=== PATIENT | male | born 1965 | race Caucasian/White ===

== ENCOUNTER 2020-11-11 12:09 | Inpatient (IN) | payer BC ==
[~2020-11-11] VITALS: Ht 188 cm; Wt 125.0 kg
[~2020-11-11 12:09] MED LIST: METO-384 PO; SIMV-42 PO; TRAM50TA2 PO; ZOLP10TA5 PO
[2020-11-11] MEDS ORDERED: dexamethasone sod phosphate 10mg/ml inj IV STA (14:13)
[2020-11-11 14:28] LABS: CLARITY,URINE SLIGHTLY CLOUDY (Clear); COLOR,URINE YELLOW (Yellow); GLUCOSE, URINE NEGATIVE (Neg); KETONES,URINE NEGATIVE (Neg); LEUKOCYTE ESTERASE ,URINE NEGATIVE (Neg); NITRITES, URINE NEGATIVE (Neg); OCCULT BLOOD,URINE TRACE-INTACT (Neg); PROTEIN,URINE 100 mg/dl (Neg); UROBILINOGEN,URINE >=8.0 E.U/dL (0.2-1.0)
[2020-11-11 14:35] LABS: UA COLLECTION TYPE NON-SPECIFIED
[2020-11-11 14:42] LABS: MUCUS STRANDS FEW /LPF (Neg); SQUAMOUS EPITHELIAL CELL,UR NONE SEEN /LPF (FEW)
[2020-11-11 14:43] LABS: BACTERIA,URINE FEW /HPF (Neg); RBC,URINE 0-2 /HPF (0-2); WBC,URINE 0-4 /HPF (0-4)
[2020-11-11 15:53] LABS: BASOPHILS % (AUTO) 0.1 % (0-1); EOSINOPHILS % (AUTO) 0 % (0-6); HEMATOCRIT 44.8 % (42.0-52.0); HEMOGLOBIN 15.3 g/dl (14.0-17.9); LYMPHOCYTES % (AUTO) 14.9 % (21-51); MEAN CORPUSCULAR HEMOGLOBIN 30.2 PG (27.0-31.0); MEAN CORPUSCULAR HGB CONC 34.2 g/dL (33.0-36.5); MEAN CORPUSCULAR VOLUME 88.5 FL (78-98); MONOCYTES # (AUTO) 0.5 X10'3 (0-0.9); MONOCYTES % (AUTO) 7.5 % (2-12); NEUTROPHILS # (AUTO) 5.3 X10'3 (1.8-7.7); NEUTROPHILS % (AUTO) 77.5 % (42-75); PLATELET COUNT 236 X10'3 (140-440); RED BLOOD COUNT 5.06 X10'6 (4.70-6.10); WHITE BLOOD COUNT 6.9 X10'3 (4.5-11.0)
[2020-11-11 16:14] LABS: ALANINE AMINOTRANSFERASE 87 U/L (12-78); ALBUMIN/GLOBULIN RATIO 0.8 (1.1-1.5); ALKALINE PHOSPHATASE 97 IU/L (46-116); ANION GAP 9 (8-16); ASPARTATE AMINO TRANSFERASE 93 U/L (10-37); BILIRUBIN,TOTAL 0.7 MG/DL (0.1-1.0); BLOOD UREA NITROGEN 18 MG/DL (7-18); BUN/CREATININE RATIO 17.8 (5.4-32.0); C-REACTIVE PROTEIN 4.37 MG/DL (0.0-0.5); CALCIUM 8.3 MG/DL (8.5-10.1); CHLORIDE 98 MMOL/L (99-107); CREATININE 1.01 MG/DL (0.60-1.10); GLUCOSE 105 MG/DL (70-104); LACTATE DEHYDROGENASE 795 U/L (85-227); LIPASE 248 U/L (73-393); POTASSIUM 4.2 MMOL/L (3.5-5.1); SODIUM 135 MMOL/L (135-145); TOTAL CARBON DIOXIDE 27.9 MMOL/L (24-32); TOTAL PROTEIN 6.9 G/DL (6.4-8.2); eGFR 76 ML/MIN
[2020-11-11] MEDS ORDERED: REMDESIVIR INJ 200 MG in normal saline 100ml IV soln 60 ML IV ONE (16:30)
[2020-11-11] MEDS ORDERED: acetaminophen 325mg tablet PO PRN ×2 (17:10)
[2020-11-11] MEDS ORDERED: potassium Cl 40MEQ/1/2NS 520ml 520 ML IV PRN ×2 (17:10)
[2020-11-11] MEDS ORDERED: magnesium 4gm in 100ml NS 100 ML IV PRN (17:10)
[2020-11-11] MEDS ORDERED: magnesium 2GM in 50ml NS 50 ML IV PRN (17:10)
[2020-11-11] MEDS ORDERED: magnesium Cl slow-release 64mg tablet PO PRN (17:10)
[2020-11-11] MEDS ORDERED: ondansetron/PF 4mg/2ml inj IV PRN (17:10)
[2020-11-11] MEDS ORDERED: potassium Cl 20 mEq SR tablet PO PRN ×2 (17:10)
[2020-11-11] MEDS ORDERED: iohexol 350MG/ML 100ml bottle IV ONE (17:55)
--- NOTE | 2020-11-11 18:05 | NUR ---
To radiology via wheelchair. Transported by technology solutions architect.
[2020-11-11] MEDS ORDERED: dexamethasone 4mg/ml inj IV SCH (20:00)
[2020-11-11] MEDS: K and/or MAG REPLACEMENT MC SCH (20:00)
[2020-11-11] MEDS: dexamethasone 6 MG in NS 50ml IV soln IV SCH (20:00)
[2020-11-11] MEDS: heparin, porcine 5000 units/ml vial SQ SCH (21:21)
[2020-11-12 03:16] LABS: BASOPHILS % (AUTO) 0.1 % (0-1); EOSINOPHILS % (AUTO) 0 % (0-6); HEMATOCRIT 43.3 % (42.0-52.0); HEMOGLOBIN 14.7 g/dl (14.0-17.9); LYMPHOCYTES # (AUTO) 0.7 X10'3 (1.1-4.8); LYMPHOCYTES % (AUTO) 15.5 % (21-51); MEAN CORPUSCULAR HEMOGLOBIN 30.4 PG (27.0-31.0); MEAN CORPUSCULAR VOLUME 89.2 FL (78-98); MEAN PLATELET VOLUME 8.8 FL (7.4-10.4); MONOCYTES # (AUTO) 0.2 X10'3 (0-0.9); MONOCYTES % (AUTO) 5.7 % (2-12); NEUTROPHILS # (AUTO) 3.5 X10'3 (1.8-7.7); NEUTROPHILS % (AUTO) 78.7 % (42-75); PLATELET COUNT 264 X10'3 (140-440); RED BLOOD COUNT 4.86 X10'6 (4.70-6.10); RED CELL DISTRIBUTION WIDTH 13.9 % (11.5-14.5); WHITE BLOOD COUNT 4.4 X10'3 (4.5-11.0)
[2020-11-12 03:26] LABS: ALANINE AMINOTRANSFERASE 93 U/L (12-78); ALBUMIN 2.8 G/DL (3.4-5.0); ALBUMIN/GLOBULIN RATIO 0.7 (1.1-1.5); ALKALINE PHOSPHATASE 95 IU/L (46-116); ANION GAP 7 (8-16); ASPARTATE AMINO TRANSFERASE 77 U/L (10-37); BILIRUBIN,TOTAL 0.6 MG/DL (0.1-1.0); BLOOD UREA NITROGEN 18 MG/DL (7-18); BUN/CREATININE RATIO 16.8 (5.4-32.0); CALCIUM 8.2 MG/DL (8.5-10.1); CHLORIDE 100 MMOL/L (99-107); CHOL/HDL RATIO 2.7 (0.00-4.99); CHOLESTEROL 135 MG/DL (0-200); CREATININE 1.07 MG/DL (0.60-1.10); GLUCOSE 176 MG/DL (70-104); HDL CHOLESTEROL 50 MG/DL (35-60); LDL CHOLESTEROL 60 MG/DL (50-100); MAGNESIUM 2.4 MG/DL (1.5-2.4); POTASSIUM 4.9 MMOL/L (3.5-5.1); SODIUM 137 MMOL/L (135-145); TOTAL CARBON DIOXIDE 29.7 MMOL/L (24-32); TOTAL PROTEIN 6.6 G/DL (6.4-8.2); TRIGLYCERIDES 85 MG/DL (20-135); eGFR 71 ML/MIN
[2020-11-12] MEDS: K and/or MAG REPLACEMENT MC SCH ×2 (08:00→20:00)
[2020-11-12] MEDS: heparin, porcine 5000 units/ml vial SQ SCH ×2 (09:55→20:56)
[2020-11-12] MEDS: REMDESIVIR INJ 100 MG in normal saline 100ml IV soln 80 ML IV SCH (09:56)
[2020-11-12] MEDS: dexamethasone 6 MG in NS 50ml IV soln IV SCH (09:56)
[2020-11-12] MEDS ORDERED: LAMO150T6 PO (11:16)
[2020-11-12] MEDS ORDERED: OMEP40CA21 PO (11:16)
--- NOTE | 2020-11-12 12:50 | NUR ---
PAGER ID: [phone] MESSAGE: [phone] RE: BED 4 NATHALIA O2 89% AT 6L CAN WE GET HIGH FLOW NC OR SHOULD I DO NON-REBREATHER?
[2020-11-12 15:00] VITALS: BP 138/68
--- NOTE | 2020-11-12 15:05 | NUR ---
TRIED TO CALL REPORT, RN UNAVAILABLE WILL CALL BACK
--- NOTE | 2020-11-12 16:00 | NUR ---
nettie Clarke in room COVID 02. I have received report from Nettie RN and had the opportunity to ask questions and assume patient care.patient is on high flow salter 10L o2 sats 89-90%. settled into room.
[2020-11-12 18:00] VITALS: BP 140/73
[2020-11-12] MEDS ORDERED: ALBUTEROL INHALER 1 PUFF/90 MCG INHALER IH PRN (19:30)
[2020-11-12] MEDS: DEXAMETHASONE 6 MG TABLET PO SCH (20:54)
[2020-11-12 23:32] VITALS: BP 142/76
--- NOTE | 2020-11-12 23:59 | NUR ---
Problems reprioritized. Patient report given, questions answered & plan of care reviewed with jaimee DICKSON.
[2020-11-13] VITALS (7 sets, daily range): BP systolic 114–176; BP diastolic 60–81
--- NOTE | 2020-11-13 00:15 | NUR ---
Patient in room COVID 02. I have received report from MICHI and had the opportunity to ask questions and assume patient care.
[2020-11-13] MEDS: heparin, porcine 5000 units/ml vial SQ SCH ×2 (07:53→21:16)
[2020-11-13] MEDS: DEXAMETHASONE 6 MG TABLET PO SCH ×2 (07:53→21:15)
[2020-11-13] MEDS: REMDESIVIR INJ 100 MG in normal saline 100ml IV soln 80 ML IV SCH (07:53)
[2020-11-13] MEDS: K and/or MAG REPLACEMENT MC SCH ×2 (08:00→20:00)
[2020-11-13 09:40] LABS: D-DIMER 0.69 MG/L FEU (0-0.50)
[2020-11-13 09:50] LABS: BASOPHILS % (AUTO) 0.1 % (0-1); EOSINOPHILS % (AUTO) 0 % (0-6); HEMATOCRIT 43.7 % (42.0-52.0); LYMPHOCYTES # (AUTO) 0.8 X10'3 (1.1-4.8); LYMPHOCYTES % (AUTO) 10.9 % (21-51); MEAN CORPUSCULAR HEMOGLOBIN 30.3 PG (27.0-31.0); MEAN CORPUSCULAR HGB CONC 34.3 g/dL (33.0-36.5); MEAN CORPUSCULAR VOLUME 88.4 FL (78-98); MEAN PLATELET VOLUME 8.7 FL (7.4-10.4); MONOCYTES # (AUTO) 0.4 X10'3 (0-0.9); MONOCYTES % (AUTO) 5.3 % (2-12); NEUTROPHILS # (AUTO) 5.8 X10'3 (1.8-7.7); NEUTROPHILS % (AUTO) 83.7 % (42-75); PLATELET COUNT 374 X10'3 (140-440); RED BLOOD COUNT 4.94 X10'6 (4.70-6.10); RED CELL DISTRIBUTION WIDTH 13.6 % (11.5-14.5); WHITE BLOOD COUNT 6.9 X10'3 (4.5-11.0)
[2020-11-13 10:12] LABS: ALANINE AMINOTRANSFERASE 135 U/L (12-78); ALBUMIN 2.7 G/DL (3.4-5.0); ALBUMIN/GLOBULIN RATIO 0.7 (1.1-1.5); ALKALINE PHOSPHATASE 97 IU/L (46-116); ANION GAP 10 (8-16); ASPARTATE AMINO TRANSFERASE 60 U/L (10-37); BILIRUBIN,TOTAL 0.6 MG/DL (0.1-1.0); BLOOD UREA NITROGEN 21 MG/DL (7-18); BUN/CREATININE RATIO 19.6 (5.4-32.0); C-REACTIVE PROTEIN 1.54 MG/DL (0.0-0.5); CALCIUM 8.2 MG/DL (8.5-10.1); CHLORIDE 101 MMOL/L (99-107); CREATININE 1.07 MG/DL (0.60-1.10); GLUCOSE 201 MG/DL (70-104); MAGNESIUM 2.3 MG/DL (1.5-2.4); POTASSIUM 4.4 MMOL/L (3.5-5.1); SODIUM 139 MMOL/L (135-145); TOTAL CARBON DIOXIDE 28.2 MMOL/L (24-32); TOTAL PROTEIN 6.5 G/DL (6.4-8.2); eGFR 71 ML/MIN
[2020-11-13 10:55] LABS: LACTATE DEHYDROGENASE 573 U/L (85-227)
--- NOTE | 2020-11-13 13:16 | NUR ---
Patient ambulated to PCT on 15L high flow O2, Patients O2 sats did drop to 83% with ambulation and mild shortness of breath. Patient back in bed and on Salter High flow 12L Patient took a few minutes to Recover and now his O2 sats are at 94% on 12L salter. Will continue to monitor, notified PT no need for PT services.
--- NOTE | 2020-11-13 15:42 | NUR ---
Problems reprioritized. Patient report given, questions answered & plan of care reviewed with Rachna DICKSON.
--- NOTE | 2020-11-13 15:52 | NUR ---
RECEIVED REPORT FROM YESSI MYLES. PT GOING TO 3430M
--- NOTE | 2020-11-13 16:51 | NUR ---
PT ARRIVED TO THE FLOOR AT 1640
--- NOTE | 2020-11-13 18:56 | NUR ---
Problems reprioritized. Patient report given, questions answered & plan of care reviewed with YESSI HUDSON.
--- NOTE | 2020-11-13 20:30 | NUR ---
Pt b/p is 176/80. Paged Dr Saldaña to get home bp and chol meds started. Put orders in for tonight.
[2020-11-13] MEDS: metoprolol succinate 25mg (24-HOUR) SR. Tablet PO SCH (21:15)
[2020-11-13] MEDS: atorvastatin 20mg tablet PO SCH (21:16)
[2020-11-14 02:00] VITALS: BP 134/75
[2020-11-14 06:00] VITALS: BP 132/74
--- NOTE | 2020-11-14 06:52 | NUR ---
Patient in room ORTHO 4024. I have received report from YESSI Zimmerman and had the opportunity to ask questions and assume patient care.
[2020-11-14 07:59] LABS: BASOPHILS % (AUTO) 0.1 % (0-1); EOSINOPHILS % (AUTO) 0 % (0-6); HEMATOCRIT 43.3 % (42.0-52.0); HEMOGLOBIN 14.8 g/dl (14.0-17.9); LYMPHOCYTES # (AUTO) 0.7 X10'3 (1.1-4.8); LYMPHOCYTES % (AUTO) 7.7 % (21-51); MEAN CORPUSCULAR HEMOGLOBIN 30.3 PG (27.0-31.0); MEAN CORPUSCULAR HGB CONC 34.2 g/dL (33.0-36.5); MEAN CORPUSCULAR VOLUME 88.6 FL (78-98); MEAN PLATELET VOLUME 8.4 FL (7.4-10.4); MONOCYTES # (AUTO) 0.9 X10'3 (0-0.9); MONOCYTES % (AUTO) 9.1 % (2-12); NEUTROPHILS # (AUTO) 7.8 X10'3 (1.8-7.7); NEUTROPHILS % (AUTO) 83.1 % (42-75); PLATELET COUNT 437 X10'3 (140-440); RED BLOOD COUNT 4.89 X10'6 (4.70-6.10); RED CELL DISTRIBUTION WIDTH 13.7 % (11.5-14.5); WHITE BLOOD COUNT 9.3 X10'3 (4.5-11.0)
[2020-11-14] MEDS: K and/or MAG REPLACEMENT MC SCH ×2 (08:00→15:24)
[2020-11-14 08:08] LABS: ALANINE AMINOTRANSFERASE 101 U/L (12-78); ALBUMIN 2.6 G/DL (3.4-5.0); ALBUMIN/GLOBULIN RATIO 0.8 (1.1-1.5); ALKALINE PHOSPHATASE 91 IU/L (46-116); ANION GAP 7 (8-16); ASPARTATE AMINO TRANSFERASE 32 U/L (10-37); BILIRUBIN,TOTAL 0.7 MG/DL (0.1-1.0); BLOOD UREA NITROGEN 22 MG/DL (7-18); BUN/CREATININE RATIO 23.4 (5.4-32.0); C-REACTIVE PROTEIN 0.62 MG/DL (0.0-0.5); CALCIUM 8.1 MG/DL (8.5-10.1); CHLORIDE 104 MMOL/L (99-107); CREATININE 0.94 MG/DL (0.60-1.10); GLUCOSE 153 MG/DL (70-104); LACTATE DEHYDROGENASE 482 U/L (85-227); MAGNESIUM 2.3 MG/DL (1.5-2.4); POTASSIUM 5.3 MMOL/L (3.5-5.1); SODIUM 139 MMOL/L (135-145); TOTAL CARBON DIOXIDE 27.9 MMOL/L (24-32); eGFR 83 ML/MIN
[2020-11-14 08:33] LABS: D-DIMER 0.48 MG/L FEU (0-0.50)
[2020-11-14] MEDS: REMDESIVIR INJ 100 MG in normal saline 100ml IV soln 80 ML IV SCH (09:52)
[2020-11-14] MEDS: atorvastatin 20mg tablet PO SCH (09:58)
[2020-11-14] MEDS: metoprolol succinate 25mg (24-HOUR) SR. Tablet PO SCH ×2 (09:58→22:34)
[2020-11-14] MEDS: DEXAMETHASONE 6 MG TABLET PO SCH ×2 (09:58→19:45)
[2020-11-14] MEDS: heparin, porcine 5000 units/ml vial SQ SCH ×2 (09:59→19:47)
[2020-11-14 10:00] VITALS: BP 141/72
[2020-11-14] MEDS ORDERED: metoprolol succinate 25mg (24-HOUR) SR. Tablet PO SCH ×2 (10:44→17:14)
[2020-11-14 14:00] VITALS: BP 159/89
[2020-11-14] MEDS ORDERED: lamoTRIgine 25mg tablet PO SCH (17:13)
--- NOTE | 2020-11-14 17:55 | NUR ---
Page Sent PAGER ID: [phone] MESSAGE: [id number] Regarding [id number] NakiaHussain solitario-Jeffrey has not taken lamotrigine in 2 weeks, he does not want to continue this med.
--- NOTE | 2020-11-14 17:57 | NUR ---
Pt states he has not taken lamotrigine x2 weeks, does not wish to continue. Will d/c per Dr. BALDERRAMA
--- NOTE | 2020-11-14 18:29 | NUR ---
Problems reprioritized. Patient report given,Karen & YESSI Ibarra questions answered & plan of care reviewed with .
[2020-11-14 18:30] VITALS: BP 147/78
[2020-11-14] MEDS: atorvastatin 10mg tablet PO SCH (19:45)
[2020-11-14 22:00] VITALS: BP 150/79
--- NOTE | 2020-11-14 23:00 | NUR ---
pt resting w/o distress. using urinal. sleeping on his side. will attempt to re-titrate oxygen in am.
[2020-11-15 01:32] VITALS: BP 121/55
[2020-11-15 06:00] VITALS: BP 123/71
--- NOTE | 2020-11-15 06:35 | NUR ---
Problems reprioritized. Patient report given, questions answered & plan of care reviewed with YESSI Jose.
[2020-11-15] MEDS ORDERED: metoprolol succinate 25mg (24-HOUR) SR. Tablet PO SCH (08:00)
[2020-11-15] MEDS: K and/or MAG REPLACEMENT MC SCH ×2 (08:00→20:00)
[2020-11-15 08:30] LABS: BASOPHILS % (AUTO) 0.1 % (0-1); EOSINOPHILS % (AUTO) 0.1 % (0-6); HEMATOCRIT 47.6 % (42.0-52.0); HEMOGLOBIN 16.1 g/dl (14.0-17.9); LYMPHOCYTES # (AUTO) 0.8 X10'3 (1.1-4.8); LYMPHOCYTES % (AUTO) 7.6 % (21-51); MEAN CORPUSCULAR HEMOGLOBIN 29.9 PG (27.0-31.0); MEAN CORPUSCULAR HGB CONC 33.7 g/dL (33.0-36.5); MEAN CORPUSCULAR VOLUME 88.8 FL (78-98); MONOCYTES # (AUTO) 0.9 X10'3 (0-0.9); MONOCYTES % (AUTO) 8.6 % (2-12); NEUTROPHILS # (AUTO) 9.2 X10'3 (1.8-7.7); NEUTROPHILS % (AUTO) 83.6 % (42-75); PLATELET COUNT 516 X10'3 (140-440); RED BLOOD COUNT 5.36 X10'6 (4.70-6.10); RED CELL DISTRIBUTION WIDTH 13.8 % (11.5-14.5)
[2020-11-15 08:49] LABS: D-DIMER 0.52 MG/L FEU (0-0.50)
[2020-11-15 08:53] LABS: ALANINE AMINOTRANSFERASE 101 U/L (12-78); ALBUMIN 2.9 G/DL (3.4-5.0); ALBUMIN/GLOBULIN RATIO 0.7 (1.1-1.5); ALKALINE PHOSPHATASE 98 IU/L (46-116); ANION GAP 9 (8-16); ASPARTATE AMINO TRANSFERASE 27 U/L (10-37); BILIRUBIN,TOTAL 0.8 MG/DL (0.1-1.0); BLOOD UREA NITROGEN 22 MG/DL (7-18); BUN/CREATININE RATIO 24.4 (5.4-32.0); C-REACTIVE PROTEIN 0.39 MG/DL (0.0-0.5); CALCIUM 8.4 MG/DL (8.5-10.1); CHLORIDE 101 MMOL/L (99-107); GLUCOSE 139 MG/DL (70-104); LACTATE DEHYDROGENASE 496 U/L (85-227); MAGNESIUM 2.5 MG/DL (1.5-2.4); POTASSIUM 4.8 MMOL/L (3.5-5.1); SODIUM 138 MMOL/L (135-145); TOTAL CARBON DIOXIDE 27.9 MMOL/L (24-32); TOTAL PROTEIN 6.8 G/DL (6.4-8.2); eGFR 87 ML/MIN
[2020-11-15] MEDS: pantoprazole 40mg Tablet.DR PO SCH (09:29)
[2020-11-15] MEDS: heparin, porcine 5000 units/ml vial SQ SCH ×2 (09:29→20:37)
[2020-11-15] MEDS: DEXAMETHASONE 6 MG TABLET PO SCH ×2 (09:29→20:36)
[2020-11-15] MEDS: REMDESIVIR INJ 100 MG in normal saline 100ml IV soln 80 ML IV SCH (09:30)
[2020-11-15 10:30] VITALS: BP 126/76
--- NOTE | 2020-11-15 12:15 | NUR ---
Initial: Pt admitted w/ Covid and increasing SOB. Pt able to eat well, 100% of all meals on Heart healthy diet meeting needs. No N/V/D noted, LBM 11/12. No nutritional intervention implemented at this time, will continue to monitor. Recs: 1. Continue Heart Healthy diet as tolerated 2. Bowel care per rx 3. Weekly wts Addendum: 11/15/20 at [address] Amended: Links added.
[2020-11-15 14:00] VITALS: BP 141/83
[2020-11-15 18:00] VITALS: BP 133/78
--- NOTE | 2020-11-15 18:04 | NUR ---
Pt has been stable and is able to make his needs known. He continues on 15L HF. He has repositioned himself throughout shift. Will continue to monitor until report given to NOC shift and NOC shift assumes care.
--- NOTE | 2020-11-15 18:30 | NUR ---
Patient in room ORTHO 4024. I have received report from Rebeca DICKSON and had the opportunity to ask questions and assume patient care.
--- NOTE | 2020-11-15 18:37 | NUR ---
Problems reprioritized. Patient report given, questions answered & plan of care reviewed with YESSI Han.
[2020-11-15] MEDS: atorvastatin 10mg tablet PO SCH (20:36)
[2020-11-15] MEDS: metoprolol succinate 25mg (24-HOUR) SR. Tablet PO SCH (20:42)
[2020-11-15 22:00] VITALS: BP 125/80
[2020-11-16 02:00] VITALS: BP 124/68
--- NOTE | 2020-11-16 05:58 | NUR ---
I asked the patient if he could try to prone when he slept tonight and he said that he would sleep on his side and rotate side to side but that he was unable to sleep prone. This discussion occurred when I assessed him on the 11/15/20 around 1999.
--- NOTE | 2020-11-16 06:38 | NUR ---
Problems reprioritized. Patient report given, questions answered & plan of care reviewed with Cheryle DICKSON.
[2020-11-16 07:05] VITALS: BP 126/71
[2020-11-16] MEDS: K and/or MAG REPLACEMENT MC SCH ×2 (08:00→20:00)
[2020-11-16] MEDS: DEXAMETHASONE 6 MG TABLET PO SCH ×2 (08:04→19:49)
[2020-11-16] MEDS: pantoprazole 40mg Tablet.DR PO SCH (08:04)
[2020-11-16] MEDS: heparin, porcine 5000 units/ml vial SQ SCH (08:06)
[2020-11-16 08:36] LABS: BASOPHILS % (AUTO) 0.1 % (0-1); EOSINOPHILS % (AUTO) 0.1 % (0-6); HEMATOCRIT 47.4 % (42.0-52.0); HEMOGLOBIN 16.3 g/dl (14.0-17.9); LYMPHOCYTES # (AUTO) 1.1 X10'3 (1.1-4.8); LYMPHOCYTES % (AUTO) 9.1 % (21-51); MEAN CORPUSCULAR HGB CONC 34.5 g/dL (33.0-36.5); MEAN PLATELET VOLUME 7.9 FL (7.4-10.4); MONOCYTES # (AUTO) 0.8 X10'3 (0-0.9); NEUTROPHILS # (AUTO) 9.9 X10'3 (1.8-7.7); NEUTROPHILS % (AUTO) 83.7 % (42-75); PLATELET COUNT 544 X10'3 (140-440); RED BLOOD COUNT 5.44 X10'6 (4.70-6.10); RED CELL DISTRIBUTION WIDTH 13.6 % (11.5-14.5); WHITE BLOOD COUNT 11.8 X10'3 (4.5-11.0)
[2020-11-16 09:03] LABS: ALANINE AMINOTRANSFERASE 72 U/L (12-78); ALBUMIN 2.9 G/DL (3.4-5.0); ALBUMIN/GLOBULIN RATIO 0.8 (1.1-1.5); ALKALINE PHOSPHATASE 96 IU/L (46-116); ANION GAP 3 (8-16); ASPARTATE AMINO TRANSFERASE 17 U/L (10-37); BILIRUBIN,TOTAL 0.7 MG/DL (0.1-1.0); BLOOD UREA NITROGEN 23 MG/DL (7-18); BUN/CREATININE RATIO 25.8 (5.4-32.0); C-REACTIVE PROTEIN 0.23 MG/DL (0.0-0.5); CALCIUM 8.2 MG/DL (8.5-10.1); CHLORIDE 104 MMOL/L (99-107); CREATININE 0.89 MG/DL (0.60-1.10); GLUCOSE 141 MG/DL (70-104); LACTATE DEHYDROGENASE 412 U/L (85-227); MAGNESIUM 2.5 MG/DL (1.5-2.4); POTASSIUM 5.6 MMOL/L (3.5-5.1); SODIUM 137 MMOL/L (135-145); TOTAL CARBON DIOXIDE 29.6 MMOL/L (24-32); TOTAL PROTEIN 6.6 G/DL (6.4-8.2); eGFR 88 ML/MIN
[2020-11-16 09:58] LABS: PLATELET ESTIMATE INCREASED; TOTAL CELLS COUNTED 100
[2020-11-16 09:59] LABS: GIANT PLATELET FEW; LARGE PLATELETS MODERATE
[2020-11-16 10:00] VITALS: BP 123/76
[2020-11-16 10:23] LABS: D-DIMER 0.49 MG/L FEU (0-0.50)
[2020-11-16 14:00] VITALS: BP 172/85
[2020-11-16 18:00] VITALS: BP 131/79
--- NOTE | 2020-11-16 18:00 | NUR ---
Report given to oncoming RN. Pt doing well in bed, no current signs of distress.
--- NOTE | 2020-11-16 18:30 | NUR ---
Patient in room ORTHO 4024. I have received report from Cheryle DICKSON and had the opportunity to ask questions and assume patient care.
[2020-11-16] MEDS: enoxaparin 60mg/0.6ml syringe SUBCUT SCH (19:48)
[2020-11-16] MEDS: atorvastatin 10mg tablet PO SCH (19:49)
[2020-11-16] MEDS: metoprolol succinate 25mg (24-HOUR) SR. Tablet PO SCH (19:49)
[2020-11-16] MEDS: zolpidem 5mg tablet PO PRN (20:55)
[2020-11-16 22:00] VITALS: BP 133/83
[2020-11-17] VITALS (7 sets, daily range): BP systolic 101–160; BP diastolic 71–85
--- NOTE | 2020-11-17 06:42 | NUR ---
Problems reprioritized. Patient report given, questions answered & plan of care reviewed with Olivia DICKSON.
[2020-11-17 07:06] LABS: D-DIMER 0.31 MG/L FEU (0-0.50)
[2020-11-17 07:19] LABS: C-REACTIVE PROTEIN 0.07 MG/DL (0.0-0.5); MAGNESIUM 2.6 MG/DL (1.5-2.4)
[2020-11-17] MEDS: K and/or MAG REPLACEMENT MC SCH ×2 (08:00→20:00)
[2020-11-17] MEDS: enoxaparin 60mg/0.6ml syringe SUBCUT SCH ×2 (08:41→20:11)
[2020-11-17] MEDS: pantoprazole 40mg Tablet.DR PO SCH (08:41)
[2020-11-17] MEDS: atorvastatin 10mg tablet PO SCH (20:10)
[2020-11-17] MEDS: dexamethasone 4mg tablet PO SCH (20:11)
[2020-11-17] MEDS: zolpidem 5mg tablet PO PRN (20:14)
[2020-11-17] MEDS: metoprolol succinate 25mg (24-HOUR) SR. Tablet PO SCH (20:16)
[2020-11-17] MEDS ORDERED: sodium polystyrene sulfonate 15gm/60ml oral suspension PO ONE (23:40)
[2020-11-18 02:56] VITALS: BP 127/81
[2020-11-18 06:00] VITALS: BP 152/87
--- NOTE | 2020-11-18 06:49 | NUR ---
Gave report to Rachna DICKSON.
--- NOTE | 2020-11-18 06:50 | NUR ---
Patient in room ORTHO 4024B. I have received report from YESSI Baker and had the opportunity to ask questions and assume patient care.
[2020-11-18] MEDS: enoxaparin 60mg/0.6ml syringe SUBCUT SCH ×2 (07:50→20:10)
[2020-11-18] MEDS: pantoprazole 40mg Tablet.DR PO SCH (07:50)
[2020-11-18] MEDS: dexamethasone 4mg tablet PO SCH ×2 (07:50→20:10)
[2020-11-18] MEDS: K and/or MAG REPLACEMENT MC SCH ×2 (08:00→20:00)
[2020-11-18 10:00] VITALS: BP 134/71
[2020-11-18 14:00] VITALS: BP 127/74
--- NOTE | 2020-11-18 18:16 | NUR ---
Problems reprioritized. Patient report given, questions answered & plan of care reviewed with YESSI HIGH.
[2020-11-18 18:30] VITALS: BP 139/79
[2020-11-18] MEDS: atorvastatin 10mg tablet PO SCH (20:10)
[2020-11-18] MEDS: zolpidem 5mg tablet PO PRN (20:10)
[2020-11-18] MEDS: metoprolol succinate 25mg (24-HOUR) SR. Tablet PO SCH (20:10)
[2020-11-18 22:00] VITALS: BP 128/72
[2020-11-19] VITALS (7 sets, daily range): BP systolic 111–134; BP diastolic 68–80
--- NOTE | 2020-11-19 06:09 | NUR ---
Patient in room ORTHO 4024B. I have received report from YESSI HIGH and had the opportunity to ask questions and assume patient care.
--- NOTE | 2020-11-19 06:30 | NUR ---
Problems reprioritized. Patient report given, questions answered & plan of care reviewed with YESSI HERNANDEZ.
[2020-11-19] MEDS: enoxaparin 60mg/0.6ml syringe SUBCUT SCH ×2 (07:01→21:20)
[2020-11-19] MEDS: dexamethasone 4mg tablet PO SCH ×2 (07:01→21:20)
[2020-11-19] MEDS: pantoprazole 40mg Tablet.DR PO SCH (07:01)
[2020-11-19 07:29] LABS: BASOPHILS % (AUTO) 0.2 % (0-1); EOSINOPHILS % (AUTO) 0.1 % (0-6); HEMATOCRIT 44.6 % (42.0-52.0); HEMOGLOBIN 15.2 g/dl (14.0-17.9); LYMPHOCYTES % (AUTO) 7.2 % (21-51); MEAN CORPUSCULAR HEMOGLOBIN 30.2 PG (27.0-31.0); MEAN CORPUSCULAR VOLUME 88.8 FL (78-98); MEAN PLATELET VOLUME 8.1 FL (7.4-10.4); MONOCYTES # (AUTO) 1.4 X10'3 (0-0.9); MONOCYTES % (AUTO) 9.3 % (2-12); NEUTROPHILS % (AUTO) 83.2 % (42-75); PLATELET COUNT 501 X10'3 (140-440); RED BLOOD COUNT 5.03 X10'6 (4.70-6.10); RED CELL DISTRIBUTION WIDTH 13.7 % (11.5-14.5); WHITE BLOOD COUNT 14.5 X10'3 (4.5-11.0)
[2020-11-19 07:36] LABS: ALANINE AMINOTRANSFERASE 42 U/L (12-78); ALBUMIN 2.5 G/DL (3.4-5.0); ALBUMIN/GLOBULIN RATIO 0.8 (1.1-1.5); ALKALINE PHOSPHATASE 93 IU/L (46-116); ANION GAP 9 (8-16); ASPARTATE AMINO TRANSFERASE 12 U/L (10-37); BILIRUBIN,TOTAL 0.7 MG/DL (0.1-1.0); BLOOD UREA NITROGEN 23 MG/DL (7-18); BUN/CREATININE RATIO 25.3 (5.4-32.0); CALCIUM 8.3 MG/DL (8.5-10.1); CHLORIDE 102 MMOL/L (99-107); CREATININE 0.91 MG/DL (0.60-1.10); GLUCOSE 156 MG/DL (70-104); LACTATE DEHYDROGENASE 867 U/L (85-227); MAGNESIUM 2.3 MG/DL (1.5-2.4); PHOSPHORUS 3.5 MG/DL (2.3-4.5); POTASSIUM 4.8 MMOL/L (3.5-5.1); SODIUM 138 MMOL/L (135-145); TOTAL CARBON DIOXIDE 27.1 MMOL/L (24-32); TOTAL PROTEIN 5.7 G/DL (6.4-8.2); eGFR 86 ML/MIN
[2020-11-19 07:37] LABS: D-DIMER 0.29 MG/L FEU (0-0.50)
[2020-11-19 07:38] LABS: C-REACTIVE PROTEIN < 0.05 MG/DL (0.0-0.5)
[2020-11-19] MEDS: K and/or MAG REPLACEMENT MC SCH ×2 (08:00→20:00)
[2020-11-19 08:40] LABS: BURR CELLS 1+; GIANT PLATELET FEW; PLATELET ESTIMATE INCREASED; TOTAL CELLS COUNTED 100
--- NOTE | 2020-11-19 18:28 | NUR ---
Problems reprioritized. Patient report given, questions answered & plan of care reviewed with YESSI HIGH.
[2020-11-19] MEDS: zolpidem 5mg tablet PO PRN (21:19)
[2020-11-19] MEDS: atorvastatin 10mg tablet PO SCH (21:20)
[2020-11-19] MEDS: metoprolol succinate 25mg (24-HOUR) SR. Tablet PO SCH (21:20)
[2020-11-20 06:00] VITALS: BP 112/71
--- NOTE | 2020-11-20 06:19 | NUR ---
Patient in room ORTHO 4024B. I have received report from YESSI HIGH and had the opportunity to ask questions and assume patient care.
--- NOTE | 2020-11-20 06:45 | NUR ---
Problems reprioritized. Patient report given, questions answered & plan of care reviewed with YESSI HERNANDEZ.
[2020-11-20] MEDS: enoxaparin 60mg/0.6ml syringe SUBCUT SCH ×2 (07:09→20:26)
[2020-11-20] MEDS: dexamethasone 4mg tablet PO SCH (07:10)
[2020-11-20] MEDS: pantoprazole 40mg Tablet.DR PO SCH (07:10)
[2020-11-20] MEDS: K and/or MAG REPLACEMENT MC SCH ×2 (08:00→20:00)
[2020-11-20 08:45] LABS: ALANINE AMINOTRANSFERASE 41 U/L (12-78); ALBUMIN 2.4 G/DL (3.4-5.0); ALBUMIN/GLOBULIN RATIO 0.8 (1.1-1.5); ALKALINE PHOSPHATASE 98 IU/L (46-116); ANION GAP 7 (8-16); ASPARTATE AMINO TRANSFERASE 19 U/L (10-37); BILIRUBIN,TOTAL 0.6 MG/DL (0.1-1.0); BLOOD UREA NITROGEN 22 MG/DL (7-18); BUN/CREATININE RATIO 24.4 (5.4-32.0); CALCIUM 8.2 MG/DL (8.5-10.1); CHLORIDE 101 MMOL/L (99-107); GLUCOSE 145 MG/DL (70-104); LACTATE DEHYDROGENASE 283 U/L (85-227); MAGNESIUM 2.1 MG/DL (1.5-2.4); PHOSPHORUS 3.4 MG/DL (2.3-4.5); POTASSIUM 4.7 MMOL/L (3.5-5.1); SODIUM 134 MMOL/L (135-145); TOTAL CARBON DIOXIDE 25.7 MMOL/L (24-32); TOTAL PROTEIN 5.5 G/DL (6.4-8.2); eGFR 87 ML/MIN
[2020-11-20 09:08] LABS: C-REACTIVE PROTEIN < 0.05 MG/DL (0.0-0.5)
[2020-11-20 10:00] VITALS: BP 98/74
[2020-11-20 14:00] VITALS: BP 126/75
[2020-11-20 18:00] VITALS: BP 128/76
--- NOTE | 2020-11-20 18:08 | NUR ---
Problems reprioritized. Patient report given, questions answered & plan of care reviewed with YESSI HIGH.
[2020-11-20] MEDS: atorvastatin 10mg tablet PO SCH (20:25)
[2020-11-20] MEDS: zolpidem 5mg tablet PO PRN (20:25)
[2020-11-20] MEDS: metoprolol succinate 25mg (24-HOUR) SR. Tablet PO SCH (20:26)
[2020-11-20 22:00] VITALS: BP 134/83
[2020-11-21 02:00] VITALS: BP 123/57
--- NOTE | 2020-11-21 06:25 | NUR ---
Problems reprioritized. Patient report given, questions answered & plan of care reviewed with YESSI BELTRE.
--- NOTE | 2020-11-21 06:28 | NUR ---
Patient in room ORTHO 4024. I have received report from Adele DICKSON and had the opportunity to ask questions and assume patient care.
[2020-11-21 06:55] VITALS: BP 114/70
[2020-11-21] MEDS: K and/or MAG REPLACEMENT MC SCH (08:00)
[2020-11-21] MEDS ORDERED: DEXAMETHASONE 6 MG TABLET PO SCH (08:00)
[2020-11-21 08:50] LABS: ALANINE AMINOTRANSFERASE 43 U/L (12-78); ALBUMIN 2.4 G/DL (3.4-5.0); ALBUMIN/GLOBULIN RATIO 0.8 (1.1-1.5); ALKALINE PHOSPHATASE 101 IU/L (46-116); ANION GAP 5 (8-16); ASPARTATE AMINO TRANSFERASE 12 U/L (10-37); BILIRUBIN,TOTAL 0.7 MG/DL (0.1-1.0); BLOOD UREA NITROGEN 22 MG/DL (7-18); BUN/CREATININE RATIO 24.2 (5.4-32.0); CALCIUM 8.1 MG/DL (8.5-10.1); CHLORIDE 102 MMOL/L (99-107); CREATININE 0.91 MG/DL (0.60-1.10); GLUCOSE 111 MG/DL (70-104); LACTATE DEHYDROGENASE 244 U/L (85-227); MAGNESIUM 2.1 MG/DL (1.5-2.4); POTASSIUM 4.7 MMOL/L (3.5-5.1); SODIUM 138 MMOL/L (135-145); TOTAL PROTEIN 5.5 G/DL (6.4-8.2); eGFR 86 ML/MIN
[2020-11-21 08:52] LABS: C-REACTIVE PROTEIN < 0.05 MG/DL (0.0-0.5); PHOSPHORUS 3.3 MG/DL (2.3-4.5)
--- NOTE | 2020-11-21 08:52 | NUR ---
Reassessment: Pt PO mostly 100% avg heart healthy diet will send double meats BIDLD for additional protein and satiety given large stature. Dietary notified. LBM 11/20. No further nutrition intervention at this time. Will continue to monitor. Recs: 1. Continue Heart Healthy diet; double meats BIDLD for satiety 2. Bowel care per rx 3. Scaled wt this admit; subsequent weekly wts Addendum: 11/21/20 at [address] Amended: Links added.
[2020-11-21] MEDS: enoxaparin 60mg/0.6ml syringe SUBCUT SCH (09:11)
[2020-11-21] MEDS: pantoprazole 40mg Tablet.DR PO SCH (09:11)
[2020-11-21 09:14] LABS: D-DIMER 0.31 MG/L FEU (0-0.50)
--- NOTE | 2020-11-21 10:45 | NUR ---
O2 Sat at rest on room air:__87_% If below 89%: Recovery O2 Sat at rest on _95__LPM:_3__%:___% via (mask/nasal cannula, etc..) No further documentation is necessary. If O2 Sat did not drop below 89% on room air,ambulate patient on room air. O2 Sat while ambulating on room air:___% Recovery O2 Sat while ambulating on ___LPM:___% No further documentation is necessary. If patient does not drop below 89% while ambulating, he/she does not qualify for home O2.
[2020-11-21 10:58] VITALS: BP 127/72
[2020-11-21 14:00] VITALS: BP 123/75
[2020-11-21] MEDS ORDERED: DEXA1TAB PO (15:36)
[2020-11-21] MEDS ORDERED: ASPI-611 PO (15:36)
[2020-11-21] MEDS ORDERED: ALBU6.7H9 IH (15:36)
[2020-11-21] MEDS ORDERED: BENZ-16 PO (15:38)
--- NOTE | 2020-11-21 16:16 | NUR ---
Removed 20 gauge PIV from right ac, cannula intact no complications. Went over discharge paperwork with patient and he verbalized understanding of all of it. Left in a wheelchair with home oxygen to private vehicle.
== END 2020-11-21 16:05 | disposition home or self-care (01) | DRG 177 ==
LOC: ER 12:09 → ED HOLD 17:11 → COVID IP 11-12 15:35 → ORTHO 4S 11-13 16:30
PROVIDERS: ADMIT Internal Medicine; ATTEND Internal Medicine
PROC: XW033E5 Introduction of Remdesivir Anti-infective into Peripheral Vein, Percutaneous Approach, New Technology Group 5 (ICD-10-PCS; principal; 2020-11-11)
PROC: B32T1ZZ Computerized Tomography (CT Scan) of Left Pulmonary Artery using Low Osmolar Contrast (ICD-10-PCS; 2020-11-11)
PROC: B3201ZZ Computerized Tomography (CT Scan) of Thoracic Aorta using Low Osmolar Contrast (ICD-10-PCS; 2020-11-11)
PROC: B32S1ZZ Computerized Tomography (CT Scan) of Right Pulmonary Artery using Low Osmolar Contrast (ICD-10-PCS; 2020-11-11)
PROC: 5A0955A Assistance with Respiratory Ventilation, Greater than 96 Consecutive Hours, High Flow/Velocity Cannula (ICD-10-PCS; 2020-11-12)
DX: U07.1 COVID-19 (principal); J12.82 Pneumonia due to coronavirus disease 2019; J96.01 Acute respiratory failure with hypoxia; E66.01 Morbid (severe) obesity due to excess calories; E78.5 Hyperlipidemia, unspecified; R79.89 Other specified abnormal findings of blood chemistry; G47.00 Insomnia, unspecified; E87.5 Hyperkalemia; K21.9 Gastro-esophageal reflux disease without esophagitis; I10 Essential (primary) hypertension; Z68.35 Body mass index [BMI] 35.0-35.9, adult; Z87.891 Personal history of nicotine dependence
CPT/HCPCS: 36415; 71045; 71275; 80053; 80061; 81001; 83605; 83615; 83690; 83735; 84100; 84145; 85007; 85025; 85379; 86140; 87040; 87081; 94760; 96374; 97110; 97161; 97530; 99285; G0378; J1100; J1644; J1650; J8540; Q9967

== ENCOUNTER 2022-09-16 08:53 | Emergency (ER) | payer BC ==
[~2022-09-16] VITALS: Ht 182.9 cm; Wt 131.8 kg
[~2022-09-16 08:53] MED LIST changes: +ALBU6.7H14 IH; +BENZ-16 PO; +DEXA1TAB PO; +LAMO150T6 PO; +OMEP40CA21 PO; -TRAM50TA2 PO
[2022-09-16 08:54] VITALS: BP 146/86
[2022-09-16] MEDS ORDERED: TETanus/Pertussis (Acell)/Diphther VAC/PF (Tdap-Adult) 0.5ml syringe IMVAC ONE (09:05)
[2022-09-16] MEDS ORDERED: LIDOcaine 1% W/epiNEPHrine 1:100,000 20ml vial IJ ONE (09:05)
[2022-09-16] MEDS ORDERED: CEPH250T PO (09:17)
== END 2022-09-16 09:54 | disposition home or self-care (01) ==
LOC: ER 08:53
DX: S71.112A Laceration without foreign body, left thigh, initial encounter (principal); Z91.011 Allergy to milk products; X58.XXXA Exposure to other specified factors, initial encounter; Y93.89 Activity, other specified; Y92.89 Other specified places as the place of occurrence of the external cause; Y99.8 Other external cause status
CPT/HCPCS: 12004; 90471; 90715; 99283; A6258; A6449

== ENCOUNTER 2023-02-06 12:13 | Emergency (ER) | payer BC ==
[~2023-02-06] VITALS: Ht 182.9 cm; Wt 134.0 kg
[2023-02-06] MEDS ORDERED: proparacaine 0.5% ophthalmic drops 15ml RIGHTEYE ONE (12:55)
[2023-02-06] MEDS ORDERED: proparacaine 0.5% ophthalmic drops 15ml LEFTEYE ONE (12:55)
[2023-02-06] MEDS ORDERED: LIDOCAINE 1%/EPI 1:100,000 inj. 10 ML multi-dose vial IJ ONE (13:10)
[2023-02-06 13:54] VITALS: BP 150/86; PULSE 80; RESP 18; TEMP 98.1; O2SAT 99
== END 2023-02-06 13:59 | disposition home or self-care (01) ==
LOC: ER 12:14
DX: S01.81XA Laceration without foreign body of other part of head, initial encounter (principal); Z72.89 Other problems related to lifestyle; Z79.899 Other long term (current) drug therapy; Z91.011 Allergy to milk products; W22.8XXA Striking against or struck by other objects, initial encounter; Y93.89 Activity, other specified; Y92.89 Other specified places as the place of occurrence of the external cause; Y99.8 Other external cause status
CPT/HCPCS: 12011; 99282; J7030; A6449

== ENCOUNTER 2023-06-09 13:54 | Day surgery (SDC) | payer BC ==
[~2023-06-09] VITALS: Ht 182.9 cm; Wt 134.0 kg
[2023-06-09 14:20] VITALS: BP 133/97; PULSE 88; RESP 13
[2023-06-09] MEDS ORDERED: fentaNYL/PF 50MCG/1 ML 2ML syringe ONE (14:53)
[2023-06-09] MEDS ORDERED: diphenhydrAMINE 50 mg/ml inj ONE (14:54)
[2023-06-09] MEDS ORDERED: MIDAZolam 1 MG/ML 5ML VIAL ONE (14:54)
[2023-06-09 15:36] VITALS: BP 129/82; PULSE 82; RESP 14; O2SAT 95
[2023-06-09 15:47] VITALS: BP 136/77; PULSE 81; RESP 16; O2SAT 95
[2023-06-09 15:57] VITALS: BP 141/80; PULSE 82; RESP 16; O2SAT 96
[2023-06-09 16:06] VITALS: BP 142/84; PULSE 81; RESP 16; O2SAT 96
== END 2023-06-09 16:08 | disposition home or self-care (01) ==
LOC: GI LAB 13:54
PROVIDERS: ATTEND Internal Medicine Gastroenterology
DX: Z12.11 Encounter for screening for malignant neoplasm of colon (principal); D12.0 Benign neoplasm of cecum; D12.3 Benign neoplasm of transverse colon; D12.4 Benign neoplasm of descending colon; K57.30 Diverticulosis of large intestine without perforation or abscess without bleeding; K64.8 Other hemorrhoids; I10 Essential (primary) hypertension; Z86.16 Personal history of COVID-19
CPT/HCPCS: 45385; 99152; 99153; J1200; J2250; J3010; J7030; Z7512; A4620